=== PATIENT | female | born 1980 | race Caucasian/White ===

== ENCOUNTER 2016-08-27 08:58 | Emergency (ER) | payer OTHER ==
--- NOTE | 2016-08-27 09:28 | UC ---
Cardiac HPI - HPI Summary HPI Summary: 35 female presents here requesting colchicine. States she has had 4-5 episodes of pericarditis since seen here with it in November of 2014. Followed by Dr. Lamb. Had recent URI. Now with palpitations/CP and SOB which is identical to here prior episodes. - History of Current Complaint Chief Complaint: UCChestPain Stated Complaint: CHEST PAIN,SOB,HEART RACING Time Seen by Provider: 08/27/16 09:03 Hx Obtained From: Patient Onset/Duration: Sudden Onset, Lasting Hours Timing: Constant Initial Severity: Mild Current Severity: Mild Pain Intensity: 4 Chest Pain Location: Diffuse, Mid Sternal Character: Pounding, Sharp/Stabbing Aggravating: Position Alleviating: OTC Meds Associated Signs & Symptoms: Positive: Chest Pain, SOB, Palpitations Related History: Similar Episode/Dx as - pericarditis x 4-5 - Risk Factors Pulmonary Embolism Risk Factors: Negative Cardiac Risk Factors: Negative Atrial Fibrillation: Negative TAD Risk Factors: Negative - Allergy/Home Medications Allergies/Adverse Reactions: Allergies Allergy/AdvReac Type Severity Reaction Status Date / Time Sulfa Antibiotics Allergy Unknown Unknown Verified 08/27/16 09:10 Reaction Details Home Medications: Home Medications Biotin W/ Vitamins C & E [Hair Skin & Nails ... 1250-7.5-7.5 Mcg-mg-Unt] 1 tab PO BID 08/27/16 [History Confirmed 08/27/16] Colchicine* [Colcrys*] 1 tab PO SEE INSTRUCTIONS PRN 08/27/16 [History Confirmed 08/27/16] PMH/Surg Hx/FS Hx/Imm Hx Previously Healthy: Yes Cardiovascular History Of: Reports: Cardiac Disorders - Pericarditis - Surgical History Surgical History: Yes Surgery Procedure, Year, and Place: tubal ligation; Right breast lumpectomy x 2. - Family History Known Family History: Negative: Cardiac Disease, Hypertension - Social History Alcohol Use: None Substance Use Type: None Smoking Status (MU): Never Smoked Tobacco - Immunization History Most Recent Influenza Vaccination: not utd Review of Systems Constitutional: Negative Skin: Negative Eyes: Negative ENT: Negative Respiratory: Shortness Of Breath, Other Cardiovascular: Palpitations Gastrointestinal: Negative Genitourinary: Negative Motor: Negative Neurovascular: Negative Musculoskeletal: Negative Neurological: Negative Psychological: Negative All Other Systems Reviewed And Are Negative: Yes Physical Exam Triage Information Reviewed: Yes Appearance: Well-Appearing, No Pain Distress, Well-Nourished Vital Signs: Initial Vital Signs Temp 97.5 F 08/27/16 09:14 Pulse 75 08/27/16 09:14 Resp 16 08/27/16 09:14 BP 125/78 08/27/16 09:14 Pulse Ox 99 08/27/16 09:14 Vital Signs Reviewed: Yes Eyes: Positive: Conjunctiva Clear ENT: Positive: Normal ENT inspection Dental Exam: Normal Neck: Positive: Supple, Nontender, No Lymphadenopathy Respiratory: Positive: Lungs clear, Normal breath sounds, No respiratory distress, No accessory muscle use. Negative: Chest non-tender, Plerual rub Cardiovascular: Positive: RRR, No Murmur, Pulses Normal, Brisk Capillary Refill , Other: - no rubs. Negative: Tachycardia Abdomen Description: Positive: Nontender, No Organomegaly, Soft Musculoskeletal: Positive: ROM Intact, No Edema Neurological Exam: Normal Neurological: Positive: Alert Psychological Exam: Normal Skin Exam: Normal Diagnostics - EKG Cardiac Rhythm: Sinus: Normal Ectopy: None ST Segment: Non-Specific - Assessment/Plan Course Of Treatment: pt has no desire to go to ED for blood work. Has a call out to her home staging specialist - Clinical Impression Provider Diagnoses: chest pain. suspect recurrent pericarditis Discharge - Discharge Plan Condition: Stable Disposition: HOME Prescriptions: Colchicine [Mitigare] 0.6 mg PO DAILY #30 cap Patient Education Materials: Chronic Pericarditis (ED) Referrals: Dilip CALLEJAS,Fausto Alcala [Medical Doctor] - As Soon As Possible Additional Instructions: to ER for new or worsening symptoms Images Front/Back of Body, Lg ([place]): 1 - tender
[2016-08-27 09:52] VITALS: BP 137/83
== END 2016-08-27 09:51 | disposition home or self-care (01) ==
LOC: UCCORT 08:58
DX: R07.9 Chest pain, unspecified (principal); R00.2 Palpitations; I31.9 Disease of pericardium, unspecified; Z88.2 Allergy status to sulfonamides
CPT/HCPCS: 93005; 99212; G0463